=== PATIENT | male | born 1980 | race Caucasian/White ===

== ENCOUNTER 2016-09-04 10:11 | Emergency (ER) | payer OTHER ==
--- NOTE | ~2016-09-04 | CR181 ---
[facility] A Service of [facility] RADIOLOGY TEXT RESULTS PATIENT: CLAUDIO GOMEZ LOCATION: SED : 84 UNIT #: [id number] AGE: [address]: Faustina Narayanan APRN SEX: M ORDER DR: [id number] [address] [id number] MR#: [id number] Acc #: [id number] NAME: CLAUDIO GOMEZ : 1980 SEX: M STUDY DATE/TIME: 09/04/2016 10:36 UNIT: SED ROOM: STUDY DESCRIPTION: CR Lumbar Spine 2 or 3 Views Attending Physician: Faustina Narayanan A.P.R.N. Ordering Physician: Faustina Flores A.P.R.N. Primary Care Physician: Primary Care Physician No MEDICAL IMAGING REPORT This report is preliminary unless electronic signature is present. EXAM 3 views lumbar spine, 09/04/2016 HISTORY 36-year-old male with low back pain radiating to bilateral legs since age 18. No known injury. Years in the and being a construction manager. COMPARISON Lumbar spine radiographs, 02/16/2015. FINDINGS No lumbar spine fracture or subluxation is appreciated. Disc space height appears well preserved. No osteolytic or osteoblastic abnormalities identified. Tiny anterior superior L5 endplate osteophyte is incidentally noted, unchanged from prior exam. IMPRESSION Normal lumbar spine. No significant change from 02/16/2015. Dictated by... Lena Savlador M.D. THIS IS AN ELECTRONICALLY VERIFIED REPORT Lena Salvador M.D. at 09/05/2016 7:11 AM JET/nessa TD: 09/04/2016 12:24 JOB #: [id number] MEDICAL IMAGING REPORT Page 1 of 1
[~2016-09-04 10:11] MED LIST: BROMPHED DM PO; FAMOTIDINE PO; FLEXERIL10 MG; FLEXERIL10 MG PO; FLONASE 0.05% N16 G1; LORTAB 5/500 TA1 TA1 PO; NO MEDICATIONS; PREDNISONE50 MG PO; PROMETHAZINE D118 ML PO; SUDAFED30 M1 PO; VOLTAREN50 MG PO; ZANAFLEX4 M1 PO; ZOFRAN PO
[2016-09-04 10:43] LABS: URINE SOURCE CLEAN CATCH
[2016-09-04 10:47] LABS: URINE APPEARANCE CLEAR; URINE BILIRUBIN NEG (NEG); URINE BLOOD NEG (NEG); URINE COLOR YELLOW; URINE GLUCOSE NEG (NORM); URINE KETONE NEG (NEG); URINE LEUKOCYTE ESTERASE NEG (NEG); URINE NITRATE NEG (NEG); URINE PH 5.5 (5-8); URINE PROTEIN NEG (NEG); URINE SPECIFIC GRAVITY 1.025 (1.003-1.035); URINE UROBILINOGEN 0.2 MG/DL (NORM)
[2016-09-04 10:48] LABS: MICRO INDICATED? NO
== END 2016-09-04 11:36 | disposition home or self-care (01) ==
LOC: SED 10:11
PROVIDERS: Nurse Practitioner
DX: S39.012A Strain of muscle, fascia and tendon of lower back, initial encounter (principal); F17.210 Nicotine dependence, cigarettes, uncomplicated; X58.XXXA Exposure to other specified factors, initial encounter; Y92.9 Unspecified place or not applicable
CPT/HCPCS: 72100; 81003; 96372; 99283; J1885